=== PATIENT | female | born 1995 | race Two or more races ===

== ENCOUNTER 2025-01-24 11:36 | Emergency (ER) | payer OTHER ==
[~2025-01-24] VITALS: Ht 154.9 cm; Wt 81.6 kg
[2025-01-24] MEDS ORDERED: dexaMETHasone SOD PHOSPHATE 1 ML ONE (12:06)
[2025-01-24] MEDS ORDERED: KETOROLAC TROMETHAMINE 15 MG/ML VIAL ONE (12:06)
[2025-01-24] MEDS ORDERED: PROCHLORPERAZINE EDISYLATE 10 MG/2 ML VIAL ONE (12:07)
[2025-01-24] MEDS: IV NS 0.9% 1,000 ML BAG IV ONE (12:15)
[2025-01-24] MEDS: dexaMETHasone SOD PHOSPHATE 10 MG/ML VIAL IV ONE (12:21)
[2025-01-24] MEDS: PROCHLORPERAZINE EDISYLATE 10 MG/2 ML VIAL IVP ONE (12:25)
[2025-01-24] MEDS: KETOROLAC TROMETHAMINE 15 MG/ML VIAL IV ONE (13:11)
[2025-01-24 13:42] VITALS: BP 126/71; TEMP 97.8; O2SAT 98
== END 2025-01-24 13:43 | disposition home or self-care (01) ==
LOC: ER 11:52
DX: G43.909 Migraine, unspecified, not intractable, without status migrainosus (principal)
CPT/HCPCS: 99284; 96374; 96375; 96361; 84703; J1885; J0780; J1100; J1200; J7030